=== PATIENT | female | born 2000 | race Caucasian/White ===

== ENCOUNTER 2023-07-04 06:50 | Inpatient (IN) | payer OTHER ==
[2023-07-04 08:22] LABS: BASO % 0.3 % (0-2.0); EOS % 0.3 % (0-4.5); HEMATOCRIT 35.9 % (32.4-45.2); HEMOGLOBIN 12.5 GM/dL (10.7-15.3); LYMPH % 21.3 % (8-40); MCH 31.6 pg (25.7-33.7); MCHC 34.8 g/dl (32.0-36.0); MEAN CELL VOLUME 90.8 fl (80-96); MEAN PLT VOLUME 10.2 fl (7.5-11.1); MONO % 6.9 % (3.8-10.2); NEUT % 71.2 % (42.8-82.8); PLATELET COUNT 195 10^3/uL (134-434); RBC 3.95 M/mm3 (3.60-5.2); RDW 15.1 % (11.6-15.6); WHITE BLOOD COUNT 6.5 K/mm3 (4.0-10.0)
[2023-07-04 08:25] LABS: INR 0.9 (0.83-1.09); PROTHROMBIN TIME (PATIENT) 10.2 SEC (9.7-13.0)
[2023-07-04] MEDS: DINOPROSTONE 10 MG VAGINAL SUPPOSITORY VG ONE (08:35)
[2023-07-04 09:04] LABS: POTASSIUM 4.4 mmol/L (3.5-5.1)
[2023-07-04 09:09] VITALS: BMI 27.4
[2023-07-04 09:12] LABS: CALCIUM 8.6 mg/dL (8.5-10.1)
[2023-07-04 09:13] LABS: BLOOD UREA NITROGEN 5.3 mg/dL (7-18)
[2023-07-04 09:16] LABS: CREATININE 0.6 mg/dL (0.55-1.3)
[2023-07-04] MEDS: ELECTROLYTE-148 SOLN 1,000 ML IV SCH (09:30)
[2023-07-04] MEDS ORDERED: OXYTOCIN 30 UNITS in 0.9% NS 30 UNIT/500 ML INFUS.BAG IVPB ONE (22:21)
[2023-07-04] MEDS: OXYTOCIN 30 UNITS in 0.9% NS 30 UNIT/500 ML INFUS.BAG IVPB SCH (22:30)
[2023-07-05] MEDS ORDERED: AMPICILLIN SODIUM 2 GM VIAL ONE (08:37)
[2023-07-05] MEDS: AMPICILLIN - 2 GM in SODIUM CHLORIDE 100 ML IVPB ONE (08:45)
[2023-07-05] MEDS ORDERED: BUTORPHANOL TARTRATE 2 MG/ML VIAL ONE ×2 (09:44→17:05)
[2023-07-05] MEDS ORDERED: PROMETHAZINE HCL 25 MG/1 ML VIAL ONE (09:45)
[2023-07-05] MEDS: PROMETHAZINE HCL 25 MG/1 ML VIAL IVPB ONE (09:55)
[2023-07-05] MEDS: BUTORPHANOL TARTRATE 1 MG/ML VIAL IVPUSH ONE (09:55)
[2023-07-05] MEDS ORDERED: AMPICILLIN SODIUM 1 GM VIAL ONE ×3 (12:21→20:31)
[2023-07-05] MEDS: AMPICILLIN - 1 GM in SODIUM CHLORIDE 100 ML IVPB SCH (12:25)
[2023-07-05] MEDS ORDERED: AMPICILLIN - 1 GM in SODIUM CHLORIDE 100 ML IVPB SCH (14:45)
[2023-07-05] MEDS ORDERED: FENTANYL/BUPIVACAINE/NS/PF - PCEA - 50 ML DISP.SYRIN EP ONE ×2 (17:49→21:05)
[2023-07-05] MEDS: FENTANYL/BUPIVACAINE/NS/PF - PCEA - 50 ML DISP.SYRIN EP SCH (17:50)
[2023-07-05] MEDS ORDERED: NALOXONE HCL 0.4 MG/ML VIAL IVPUSH PRN (18:18)
[2023-07-05 18:22] VITALS: RESP 18
[2023-07-05 21:01] LABS: RETICULOCYTES 2.75 % (0.5-1.5)
[2023-07-05 21:38] LABS: URIC ACID 6.8 mg/dL (2.6-7.2)
[2023-07-05] MEDS ORDERED: LIDOCAINE HCL 1% PRESERVATIVE FREE - 30ML VIAL ONE (22:59)
[2023-07-05] MEDS ORDERED: OXYTOCIN 20 UNITS in 0.9% NS 20 UNIT/1,000 ML INFUS.BAG IV ONE (22:59)
[2023-07-06] MEDS: OXYTOCIN 20 UNITS in 0.9% NS 20 UNIT/1,000 ML INFUS.BAG IV SCH (00:20)
[2023-07-06 01:08] LABS: CORD HCO3 20.2 mmHg (20-29); CORD PCO2 51.4 mmHg (30-78); CORD pH 7.213 (7.14-7.44)
[2023-07-06 01:10] LABS: CORD HCO3 17.4 mmHg (20-29); CORD PCO2 51.1 mmHg (30-78)
[2023-07-06] MEDS ORDERED: BENZOCAINE 28 GM HEMORRHOIDAL OINTMENT TP PRN (01:26)
[2023-07-06] MEDS ORDERED: BENZOCAINE 20% 57 GM BOTTLE TP PRN (01:26)
[2023-07-06] MEDS ORDERED: BISACODYL 10 MG SUPP.RECT RC PRN (01:26)
[2023-07-06] MEDS ORDERED: METHYLERGONOVINE MALEATE 0.2 MG/1 ML AMP IM PRN (01:26)
[2023-07-06] MEDS ORDERED: WITCH HAZEL 50% (TUCKS) 40 PAD/JAR PAD TP PRN (01:26)
[2023-07-06 01:55] LABS: BASO % 0.2 % (0-2.0); HEMATOCRIT 35.9 % (32.4-45.2); HEMOGLOBIN 12.4 GM/dL (10.7-15.3); LYMPH % 2.8 % (8-40); MCH 31.5 pg (25.7-33.7); MCHC 34.4 g/dl (32.0-36.0); MEAN CELL VOLUME 91.5 fl (80-96); MONO % 3.9 % (3.8-10.2); NEUT % 93.1 % (42.8-82.8); PLATELET COUNT 204 10^3/uL (134-434); RBC 3.92 M/mm3 (3.60-5.2); WHITE BLOOD COUNT 16.2 K/mm3 (4.0-10.0)
[2023-07-06 02:18] LABS: CALCIUM 8.4 mg/dL (8.5-10.1)
[2023-07-06 02:19] LABS: ALBUMIN 2.3 g/dl (3.4-5.0); BLOOD UREA NITROGEN 6.5 mg/dL (7-18)
[2023-07-06 02:24] LABS: TOT PROT 5.2 g/dl (6.4-8.2)
[2023-07-06] MEDS: PROMETHAZINE HCL 25 MG/1 ML VIAL IVPB ONE (04:25)
[2023-07-06] MEDS: FENTANYL/BUPIVACAINE/NS/PF - PCEA - 50 ML DISP.SYRIN EP SCH (04:25)
[2023-07-06] MEDS: BUTORPHANOL TARTRATE 1 MG/ML VIAL IVPUSH ONE (04:26)
[2023-07-06] MEDS: IBUPROFEN 600 MG TABLET (FP) PO PRN (09:29)
[2023-07-06] MEDS ORDERED: DIPHTH,PERTUSS(ACELL),TET 0.5 ML DISP.SYRIN IM ONE (10:00)
[2023-07-06 12:40] LABS: HEPATITIS B SURFACE AG MATERN NON-REACTIVE (NONREACTIVE)
[2023-07-07 09:19] LABS: BASO % 0.2 % (0-2.0); EOS % 0.2 % (0-4.5); HEMOGLOBIN 11.2 GM/dL (10.7-15.3); LYMPH % 13.6 % (8-40); MCH 32.1 pg (25.7-33.7); MCHC 34.9 g/dl (32.0-36.0); MEAN PLT VOLUME 9.9 fl (7.5-11.1); MONO % 5.2 % (3.8-10.2); NEUT % 80.8 % (42.8-82.8); PLATELET COUNT 177 10^3/uL (134-434); RBC 3.48 M/mm3 (3.60-5.2); WHITE BLOOD COUNT 9.7 K/mm3 (4.0-10.0)
[2023-07-07 09:53] LABS: ALBUMIN 2.3 g/dl (3.4-5.0)
[2023-07-07] MEDS: ACETAMINOPHEN 325 MG TABLET (FP) PO PRN (09:56)
[2023-07-07 09:58] LABS: BILIRUBIN,DIRECT 0.1 mg/dL (0.0-0.2)
[2023-07-07 10:00] LABS: BILIRUBIN,TOTAL 0.4 mg/dL (0.2-1)
[2023-07-07] MEDS ORDERED: SENNOSIDES/DOCUSATE COMBO (SENNA PLUS) TABLET (UD) PO PRN (22:00)
[2023-07-08 07:17] LABS: POTASSIUM 3.9 mmol/L (3.5-5.1)
[2023-07-08 07:24] LABS: ALBUMIN 2.3 g/dl (3.4-5.0); BLOOD UREA NITROGEN 12.6 mg/dL (7-18); CALCIUM 8.4 mg/dL (8.5-10.1)
[2023-07-08 07:26] LABS: CREATININE 0.7 mg/dL (0.55-1.3)
[2023-07-08 07:28] LABS: BILIRUBIN,TOTAL 0.3 mg/dL (0.2-1); TOT PROT 5.3 g/dl (6.4-8.2)
[2023-07-08 09:18] VITALS: BP 124/77; PULSE 80; TEMP 98
[2023-07-09 10:38] LABS: POC NITRAZINE POS
[2023-07-09 22:10] LABS: FIBROSIS SCORE. 0.02 (0.00-0.21); HCV ALPHA 2 MACRO CHART 133 mg/dL (110-276); NECRO.INFLAM ACT.SCORE 0.43 (0.00-0.17); NECROINFLAM. ACTIVITY GRADE A1-A2 (.)
== END 2023-07-08 12:00 | disposition home or self-care (01) | DRG 560 ==
LOC: JLDR 06:50 → J3W 07-06 03:36
PROVIDERS: ADMIT Obstetrics & Gynecology; ATTEND Obstetrics & Gynecology
PROC: 3E0P7VZ Introduction of Hormone into Female Reproductive, Via Natural or Artificial Opening (ICD-10-PCS; 2023-07-04)
PROC: 10E0XZZ Delivery of Products of Conception, External Approach (ICD-10-PCS; principal; 2023-07-05)
PROC: 0HQ9XZZ Repair Perineum Skin, External Approach (ICD-10-PCS; 2023-07-05)
PROC: 0W8NXZZ Division of Female Perineum, External Approach (ICD-10-PCS; 2023-07-05)
DX: O70.0 First degree perineal laceration during delivery (principal); O36.5930 Maternal care for other known or suspected poor fetal growth, third trimester, not applicable or unspecified; O26.643 Intrahepatic cholestasis of pregnancy, third trimester; O99.820 Streptococcus B carrier state complicating pregnancy; Z3A.38 38 weeks gestation of pregnancy; Z37.0 Single live birth
CPT/HCPCS: 36415; 36600; 80048; 80053; 80076; 82172; 82803; 82977; 83010; 83615; 83883; 83986-QW; 84450; 84460; 84550; 85025; 85032; 85045; 85610; 85730; 86705; 86708; 86780; 86850; 86900; 86901; 87340